=== PATIENT | male | born 1950 | race Caucasian/White ===

== ENCOUNTER → 2019-09-28 08:02 | Outpatient (BNVA) | payer MEDICARE, SELFPAY | PROVIDERS: Family Provider Family Medicine; PCP Family Medicine; Visit Provider Urology | DX: R97.20 Elevated prostate specific antigen [PSA] (principal); N40.0 Benign prostatic hyperplasia without lower urinary tract symptoms; N39.9 Disorder of urinary system, unspecified; R33.9 Retention of urine, unspecified | CPT/HCPCS: 81001; 84153 ==

== ENCOUNTER → 2020-09-27 08:22 | Outpatient (BNVA) | payer MEDICARE, SELFPAY | PROVIDERS: Family Provider Family Medicine; PCP Family Medicine; Visit Provider Urology | DX: Z12.5 Encounter for screening for malignant neoplasm of prostate (principal); R33.9 Retention of urine, unspecified; N40.0 Benign prostatic hyperplasia without lower urinary tract symptoms | CPT/HCPCS: 81003; G0103 ==

== ENCOUNTER → 2021-03-27 07:59 | Outpatient (BNVA) | payer MEDICARE, SELFPAY | PROVIDERS: Family Provider Family Medicine; PCP Family Medicine; Visit Provider Urology | DX: N40.0 Benign prostatic hyperplasia without lower urinary tract symptoms (principal); R33.9 Retention of urine, unspecified | CPT/HCPCS: 81003 ==

== ENCOUNTER 2022-04-01 14:19 | Outpatient (CLI) | payer MEDICARE, SELFPAY ==
[2022-04-01 15:12] LABS: PSA Screen - Urology 1.13 ng/mL (0-4)
== END 2022-04-01 14:20 | disposition home or self-care (01) ==
LOC: LAB 14:20
PROVIDERS: PCP Family Medicine; Visit Provider Urology
DX: R33.9 Retention of urine, unspecified (principal); Z12.5 Encounter for screening for malignant neoplasm of prostate; N40.0 Benign prostatic hyperplasia without lower urinary tract symptoms
CPT/HCPCS: 51741; 51798; 81003; 99213; G0103

== ENCOUNTER → 2022-08-14 12:58 | Outpatient (BNVA) | payer MEDICARE, SELFPAY | PROVIDERS: PCP Family Medicine; Visit Provider Family Medicine | DX: Z00.00 Encounter for general adult medical examination without abnormal findings (principal); Z13.6 Encounter for screening for cardiovascular disorders | CPT/HCPCS: 80053; 80061 ==

== ENCOUNTER 2024-03-11 12:41 | Outpatient (CLI) | payer MEDICARE, SELFPAY | END 2024-03-11 12:42 | disposition home or self-care (01) | PROVIDERS: PCP Family Medicine; Visit Provider Urology | DX: N40.1 Benign prostatic hyperplasia with lower urinary tract symptoms (principal); R33.9 Retention of urine, unspecified | CPT/HCPCS: 36415; 84153 ==

== ENCOUNTER 2024-07-14 11:12 | Outpatient (CLI) | payer MEDICARE, SELFPAY ==
[2024-07-14 12:20] LABS: Prostate Specific Antigen Scr 3.26 ng/mL (0-4)
== END 2024-07-14 11:13 | disposition home or self-care (01) ==
LOC: LAB 11:15
PROVIDERS: PCP Family Medicine; Visit Provider Urology
DX: Z12.5 Encounter for screening for malignant neoplasm of prostate (principal)
CPT/HCPCS: 36415; G0103

== ENCOUNTER 2025-06-05 13:06 | Outpatient (CLI) | payer MEDICARE, SELFPAY ==
[2025-06-05 15:25] LABS: Prostate Specific Antigen 2.520 ng/mL (0-4)
== END 2025-06-05 13:07 | disposition home or self-care (01) ==
PROVIDERS: PCP Family Medicine; Visit Provider Nurse Practitioner Family
DX: R97.20 Elevated prostate specific antigen [PSA] (principal)
CPT/HCPCS: 36415; 84153